=== PATIENT | male | born 1975 | race Caucasian/White ===

== ENCOUNTER 2023-10-30 17:17 | Observation (INO) ==
[2023-10-30 18:02] LABS: ABS Lymphocytes 1.1 10^3/uL (1.0-4.8); ABS Monocytes 1.1 10^3/uL (0.0-1.1); ABS Nucleated RBC 0.01 10^3/ul; Eosinophil % 0.1 %; Hematocrit 39.1 % (38-53); Hemoglobin 13.6 g/dL (13.2-16.3); Lymphocyte % 10.9 %; Mean Corpuscular Hemoglobin 30.2 pg (27-33); Mean Corpuscular Hgb Conc 34.7 g/dL (31-36); Mean Corpuscular Volume 86.9 fL (80-97); Mean Platelet Volume 9.3 fL (7.5-11.2); Platelet Count 164 10^3/uL (150-450); Red Blood Count 4.51 10^6/uL (4.06-5.63); Red Cell Distribution Width 13.4 % (12-17); White Blood Count 10.2 10^3/uL (3.6-10.2)
[2023-10-30 18:10] LABS: INR 1.23 (0.85-1.14)
[2023-10-30 18:47] LABS: Albumin 4.6 g/dL (3.2-5.2); Albumin/Globulin Ratio 1.7 (1-3); Calcium 9.4 mg/dL (8.6-10.3); Creatinine, Serum 1.06 mg/dL (0.67-1.17); Globulin 2.7 g/dL (2-4); Potassium 3.9 mmol/L (3.5-5.0); Total Bilirubin 0.5 mg/dL (0.2-1.0); Total Protein 7.3 g/dL (6.4-8.9)
[2023-10-30 19:42] LABS: High Sensitivity Troponin 1 Hr 3 pg/mL (<20)
[2023-10-30] MEDS: Iohexol 350 (CONTRAST) 500 ML MDV IV ONE (22:07)
[2023-10-30 23:51] LABS: C Reactive Protein 26.19 mg/L (<8.01)
[2023-10-31] MEDS: Piperacillin/Tazobac 3.375 BAG 3.375 GM/100 ML BAG IV ONE (00:16)
[2023-10-31] MEDS ORDERED: Ondansetron 4 mg VIAL 2 MG/ML 2 ml VIAL IV PRN ×2 (00:30→09:34)
[2023-10-31] MEDS ORDERED: Zosyn per Pharmacy NOTE FOLLOW UP SCH (01:00)
[2023-10-31] MEDS ORDERED: Albuterol HFA INHALER 8 gm MDI INH PRN (01:48)
[2023-10-31] MEDS: NS 0.9% 1000 ml BAG 1,000 ML IV SCH (03:20)
[2023-10-31] MEDS: Lactated Ringers 1000 ml BAG 1,000 ML IV SCH (04:50)
[2023-10-31] MEDS: ZOSYN 3.375 GM Q8H per EXTENDED INFUSION IV SCH (05:00)
[2023-10-31] MEDS: Mometasone/Formoter 100/5 MDI INH SCH (07:20)
[2023-10-31 07:56] LABS: ABS Basophils 0.1 10^3/uL (0.0-0.1); ABS Eosinophils 0.2 10^3/uL (0.0-0.5); ABS Lymphocytes 1.2 10^3/uL (1.0-4.8); ABS Monocytes 1.1 10^3/uL (0.0-1.1); ABS Neutrophils 5.7 10^3/uL (1.5-7.6); ABS Nucleated RBC 0.01 10^3/ul; Eosinophil % 2.3 %; Hematocrit 37.1 % (38-53); Mean Corpuscular Hemoglobin 30.4 pg (27-33); Mean Corpuscular Hgb Conc 35.1 g/dL (31-36); Mean Corpuscular Volume 86.8 fL (80-97); Mean Platelet Volume 8.9 fL (7.5-11.2); Nucleated Red Blood Cells % 0.1 %/100WBC (0.0-0.8); Platelet Count 163 10^3/uL (150-450); Red Blood Count 4.27 10^6/uL (4.06-5.63); Red Cell Distribution Width 13.2 % (12-17); White Blood Count 8.2 10^3/uL (3.6-10.2)
[2023-10-31 08:45] LABS: Albumin 4.3 g/dL (3.2-5.2); Albumin/Globulin Ratio 1.7 (1-3); Calcium 8.6 mg/dL (8.6-10.3); Creatinine, Serum 1.17 mg/dL (0.67-1.17); Globulin 2.6 g/dL (2-4); Potassium 4.1 mmol/L (3.5-5.0); Total Protein 6.9 g/dL (6.4-8.9); eGFR CKD-EPI 76.4 (>60)
[2023-10-31] MEDS ORDERED: Buffered Lidocaine 1% SYRIN 1 ml INTRADERM ONE (09:34)
[2023-10-31] MEDS ORDERED: Acetaminophen IV 1 GM/100ML 1,000 MG/100 ML BAG IV ONE (09:34)
[2023-10-31] MEDS ORDERED: Scopolamine 1 mg/72hr PATCH TRANSDERM ONE (09:34)
[2023-10-31] MEDS ORDERED: fentaNYL 100 mcg/2 ml 50 MCG/ML VIAL IV PRN (09:34)
[2023-10-31] MEDS ORDERED: Naloxone 0.4 mg VIAL 0.4 mg/ml 1 ml VIAL IV PRN (09:34)
[2023-10-31] MEDS ORDERED: Metoclopramide 5 MG/ML VIAL (10 mg) IV PRN (09:34)
[2023-10-31] MEDS ORDERED: fentaNYL 100 mcg/2 ml 50 MCG/ML VIAL ONE ×2 (09:37→11:11)
[2023-10-31] MEDS ORDERED: Midazolam 2 mg/2 ml VIAL 1 mg/ml 2 ml VIAL (2 mg) ONE (09:37)
[2023-10-31] MEDS ORDERED: Lidocaine 2% PF 5 ML VIAL ONE (09:38)
[2023-10-31] MEDS ORDERED: Rocuronium 50 mg VIAL 10 mg/ml 5 ml VIAL (50 mg) ONE (09:38)
[2023-10-31] MEDS ORDERED: Propofol 10 MG/ML 20 ML BTL ONE (09:38)
[2023-10-31] MEDS: Multivitamins/Minerals TAB PO SCH (09:43)
[2023-10-31] MEDS ORDERED: NS 0.45% 1000 ml BAG 1,000 ML IV SCH (10:00)
[2023-10-31] MEDS ORDERED: Lactated Ringers 1000 ml BAG 1,000 ML IV SCH (10:00)
[2023-10-31] MEDS ORDERED: Dexamethasone IV 4 MG/ML VIAL 1 ml VIAL ONE (10:43)
[2023-10-31] MEDS ORDERED: Ondansetron 4 mg VIAL 2 MG/ML 2 ml VIAL ONE (10:43)
[2023-10-31] MEDS ORDERED: Dexmedetomidine 200 mcg/2 ml 2 ml VIAL (200 mcg) ONE (10:44)
[2023-10-31 12:39] VITALS: BP 141/85
== END 2023-10-31 13:31 | disposition home or self-care (01) ==
LOC: ED 17:17 → EDHOLD 17:17 → SSU 10-31 01:19
PROVIDERS: ADMIT Hospitalist; ATTEND Surgery